=== PATIENT | male | born 1940 | race Caucasian/White ===

== ENCOUNTER → 2018-04-17 | Outpatient (CLI) | payer MEDICARE ==
--- NOTE | 2018-04-17 12:23 | Diagnostic Imaging Report ---
Indication: Right hip pain 2 views of the right hip show no fracture, dislocation or other acute abnormalities. Impression: Negative right hip Dictated by: Dictated on workstation # [id number]
--- NOTE | 2018-04-17 12:24 | Diagnostic Imaging Report ---
Indication: Left hip pain 3 views of left hip show no fracture, dislocation or other acute abnormalities. Joint spaces well maintained. Articular surfaces are smooth. Impression: Negative left hip Dictated by: Dictated on workstation # [id number]
--- NOTE | 2018-04-17 12:25 | Diagnostic Imaging Report ---
Indication: Neck pain Cervical spine AP and lateral views of the cervical spine were obtained. There is disc space during at C4-5. There is very slight spondylolisthesis at C5-6. There are hypertrophic changes of the uncovertebral joints from C2-3 through C5-6. There is no fracture or prevertebral soft tissue swelling. Impression: There are degenerative disc changes of the lower cervical spine and of the uncovertebral joints through the mid cervical spine. There is no acute abnormality seen. Dictated by: Dictated on workstation # [id number]
--- NOTE | 2018-04-17 12:28 | Diagnostic Imaging Report ---
CLINICAL INDICATION: Patient with chronic pain in low back. EXAM: X-ray of the lumbar spine, three views. COMPARISON: None. FINDINGS: There is mild dextroscoliosis of the lumbar spine with apex at the L2 vertebral body level. There is moderately hypertrophic spurs throughout the lumbar spine. There is grade I anterolisthesis of L4 on L5 with no pars defect seen. There is sfsjkvcw-[id number] loss of intervertebral disc height at the L5-S1 level and mild loss at the L3-L4 level. Facet arthropathy is seen. Sacroiliac joint shows no significant abnormality. Phleboliths are seen in the pelvis. 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 2: There is grade I anterolisthesis of L4 on L5. There is no pars defect seen. Dictated by: Dictated on workstation # [id number]
== END ==
LOC: RAD FS 10:50
PROVIDERS: ATTEND Family Medicine
DX: M50.30 Other cervical disc degeneration, unspecified cervical region (principal); M47.816 Spondylosis without myelopathy or radiculopathy, lumbar region; M41.86 Other forms of scoliosis, lumbar region; M43.16 Spondylolisthesis, lumbar region; M25.552 Pain in left hip; M25.551 Pain in right hip
CPT/HCPCS: 72040; 72100; 73502

== ENCOUNTER 2018-10-08 13:06 | Outpatient (CLI) | payer MEDICARE ==
[~2018-10-08] VITALS: Ht 177.8 cm; Wt 86.2 kg
[2018-10-08] MEDS ORDERED: ASPI-808 PO (13:19)
[2018-10-08] MEDS ORDERED: AMLO2.5T4 PO (13:19)
[2018-10-08] MEDS ORDERED: MELA3TAB PO (13:20)
[2018-10-08] MEDS ORDERED: LOVA20TA2 PO (13:20)
[2018-10-08] MEDS ORDERED: IBUP-1780 PO (13:20)
[2018-10-08] MEDS ORDERED: CLOB15CR3 TP (13:20)
[2018-10-08] MEDS ORDERED: ACET-2267 PO (13:20)
[2018-10-08] MEDS ORDERED: ATEN25TA PO (13:20)
[2018-10-08] MEDS ORDERED: HYDR25TA4 PO (13:20)
[2018-10-08] MEDS ORDERED: LISI-552 PO (13:20)
== END 2018-10-08 16:00 | disposition home or self-care (01) ==
LOC: PREOP 13:06
PROVIDERS: ATTEND Orthopaedic Surgery
DX: Z01.818 Encounter for other preprocedural examination (principal)

== ENCOUNTER 2018-10-13 10:15 | Inpatient (IN) | payer MEDICARE ==
[2018-10-13] VITALS (12 sets, daily range): BP systolic 136–196; BP diastolic 66–97
[~2018-10-13] VITALS: Ht 177.8 cm; Wt 83.9 kg
[~2018-10-13 10:15] MED LIST: ACET-2267 PO; AMLO2.5T4 PO; ASPI-808 PO; ATEN25TA PO; CLOB15CR3 TP; HYDR25TA4 PO; IBUP-1780 PO; LISI-552 PO; LOVA20TA2 PO; MELA3TAB PO
[2018-10-13] MEDS ORDERED: SUCCINYLCHOLINE INJ 100 MG/5 ML SYR ONE (10:44)
[2018-10-13] MEDS ORDERED: ROCURONIUM 10 MG/ML 5 ML SYRINGE IV ONE (10:44)
[2018-10-13] MEDS ORDERED: ONDANSETRON 4 MG/2 ML (SDV) Z0FRAN ONE (10:44)
[2018-10-13] MEDS ORDERED: LIDOCAINE PF 2% 5 ML (XYLOCAINE) VIAL ONE (10:44)
[2018-10-13] MEDS ORDERED: DEXAMETHASONE 10 MG/ML (DECADRON) 1 ML VIAL ONE ×2 (10:44→12:52)
[2018-10-13] MEDS ORDERED: proPOfol 200 MG/20 ML (DIPRIVAN) VIAL IV ONE ×2 (10:44→14:19)
[2018-10-13] MEDS ORDERED: GLYCOPYRROLATE 0.2 MG/ML (ROBINUL) 2 ML VIAL ONE (10:44)
[2018-10-13] MEDS ORDERED: SEVOFLURANE (ULTANE) 15 ML INHAL SOLN ONE (10:44)
[2018-10-13] MEDS ORDERED: NEOSTIGMINE 3 MG/3 ML VIAL ONE (10:44)
[2018-10-13] MEDS ORDERED: PROPOFOL INJECTION 50 ML IV ONE (10:44)
[2018-10-13] MEDS: LACTATED RINGERS 1,000 ML IV PRN ×2 (10:45→13:05)
[2018-10-13] MEDS ORDERED: fentaNYL INJECTION 100 MCG/2 ML AMP ONE (10:45)
[2018-10-13 10:57] LABS: BASOPHILS # (AUTO) 0.1 10^3/uL (0.0-0.1); BASOPHILS % (AUTO) 1 % (0-10); EOSINOPHILS # (AUTO) 0.2 10^3/uL (0.0-0.3); EOSINOPHILS % (AUTO) 2 % (0-10); HEMATOCRIT 46 % (40-54); LYMPHOCYTES # (AUTO) 3.1 X 10^3 (1.0-4.0); LYMPHOCYTES % (AUTO) 38 % (12-44); MEAN CORPUSCULAR HEMOGLOBIN 31 PG (25-34); MEAN CORPUSCULAR HGB CONC 33 G/DL (32-36); MEAN CORPUSCULAR VOLUME 95 FL (80-99); MEAN PLATELET VOLUME 10.7 FL (7.4-10.4); MONOCYTES % (AUTO) 12 % (0-12); NEUTROPHILS # (AUTO) 3.9 X 10^3 (1.8-7.8); NEUTROPHILS % (AUTO) 48 % (42-75); PLATELET COUNT 255 10^3/uL (130-400); RED CELL DISTRIBUTION WIDTH 13.5 % (10.0-14.5); WHITE BLOOD COUNT 8.1 10^3/uL (4.3-11.0)
[2018-10-13] MEDS ORDERED: CLINDAMYCIN 600 MG/50 ML IVPB 50 ML IV ONE ×2 (11:00→11:15)
[2018-10-13] MEDS ORDERED: BACITRACIN 100,000 UNIT/NS 1000 ML POUR BOTTLE IR ONE ×2 (11:15)
[2018-10-13] MEDS ORDERED: ONDANSETRON 4 MG/2 ML (SDV) Z0FRAN IV PRN (12:45)
[2018-10-13] MEDS ORDERED: BISACODYL 5 MG (DULCOLAX) TABLET PO PRN (12:45)
[2018-10-13] MEDS ORDERED: BISACODYL 10 MG SUPP (DULCOLAX) PR PRN (12:45)
[2018-10-13] MEDS ORDERED: ONDANSETRON 4 MG (ZOFRAN) ORAL DISSOLVE TAB PO PRN (12:45)
[2018-10-13] MEDS ORDERED: morphine INJ 10 MG/ML 1ML (SYR OR VIAL) IVP PRN (12:45)
[2018-10-13] MEDS ORDERED: FAMOTIDINE 20 MG (PEPCID) TABLET PO SCH (12:45)
[2018-10-13] MEDS ORDERED: oxyCODONE/APAP 5/325MG (PERCOCET 5) TABLET PO PRN (12:45)
[2018-10-13] MEDS ORDERED: THROMBIN 5,000 UNIT (RECOTHROM) VIAL ONE ×2 (12:46→13:43)
[2018-10-13] MEDS ORDERED: CLINDAMYCIN 900 MG/50 ML IVPB 50 ML IV SCH (14:00)
[2018-10-13] MEDS ORDERED: THROMBIN 5,000 UNIT (RECOTHROM) VIAL TOP ONE ×2 (14:15)
[2018-10-13] MEDS ORDERED: morphine INJ 10 MG/ML 1ML (SYR OR VIAL) IVP ONE (15:00)
[2018-10-13] MEDS ORDERED: ONDANSETRON 4 MG/2 ML (SDV) Z0FRAN IVP PRN (15:00)
[2018-10-13] MEDS ORDERED: fentaNYL INJECTION 100 MCG/2 ML AMP IVP ONE (15:00)
--- NOTE | 2018-10-13 16:00 | NUR ---
MADDIE MEDELLIN admitted to room 418-1, admitted from surgery post op cervial fusion, on 10/13/18, accompanied by recovery nurse and daughter already in room waiting on the patient .MADDIE MEDELLIN introduced to surroundings, call light, bed controls, phone, TV, temperature control, lights, meal times, smoking policy, visitor policy, side rail policy, bathrooms and showers. Patient Rights given to patient in the handbook. MADDIE MEDELLIN verbalizes understanding that [facility] is not responsible for the loss or damage to any personal effects or valuables that are kept in the patients posession during their hospitalization. The following Patient Care Plans and discharge were discussed with the patient, daughter present, MADDIE MEDELLIN verbalizes understanding of Interdisciplinary Patient Education.
--- NOTE | 2018-10-13 19:07 | Diagnostic Imaging Report ---
INDICATION: Fluoroscopy for cervical spine surgery. Fluoroscopy was provided in the OR during cervical spine surgery. 9 seconds of fluoroscopy was utilized. Images demonstrate postop changes cervical spine ACDF. IMPRESSION: Fluoroscopy for cervical spine surgery. Dictated by: Dictated on workstation # [id number]
[2018-10-13] MEDS: CLINDAMYCIN 900 MG/50 ML IVPB 50 ML IV SCH (19:59)
[2018-10-13] MEDS: HYDROcodone/APAP 5 MG/325 MG (LORTAB) TAB PO PRN (20:00)
[2018-10-13] MEDS: MELATONIN 3 MG TABLET PO SCH (21:36)
[2018-10-13] MEDS: amLODIPine 2.5MG (NORVASC) TAB PO SCH (21:36)
[2018-10-13] MEDS: lisINopril 20 MG (PRINIVIL) TABLET PO SCH (21:36)
[2018-10-13] MEDS: FAMOTIDINE 20 MG (PEPCID) TABLET PO SCH (21:36)
[2018-10-13] MEDS: SIMvastatin 20 MG (ZOCOR) TAB PO SCH (21:36)
[2018-10-13] MEDS: ATENOLOL 25 MG (TENORMIN) TAB PO SCH (21:36)
[2018-10-14] MEDS: CLINDAMYCIN 900 MG/50 ML IVPB 50 ML IV SCH ×2 (03:09→12:07)
[2018-10-14 03:34] VITALS: BP 157/73
--- NOTE | 2018-10-14 06:30 | Progress Note ---
Subjective Date Seen by a Provider: Oct 14, 2018 Time Seen by a Provider: 06:27 Subjective/Events-last exam POD #1 s/p ACDF with corpectomy C3-6. C/o discomfort with the c-collar and some dysphagia as well. We discussed removing the collar when seated or in bed. He denies SOB, f/c n/v Review of Systems General: No Chills HEENT: No Head Aches Cardiovascular: No: Chest Pain, Palpitations Gastrointestinal: No: Nausea, Vomiting Musculoskeletal: neck pain Neurological: No: Weakness, Numbness, Incoordination Objective Exam Vital Signs Date Time Temp Pulse Resp B/P (MAP) Pulse Ox O2 Delivery O2 Flow Rate FiO2 10/14/18 03:34 97.5 58 18 157/73 (101) 94 Room Air 10/13/18 23:41 97.3 65 18 151/77 (101) 96 Room Air 10/13/18 21:00 Room Air 10/13/18 19:39 97.6 68 18 169/83 (111) 96 Room Air 10/13/18 15:46 97.4 58 20 189/91 (123) 97 Room Air 10/13/18 15:40 Room Air 10/13/18 15:29 12 94 Room Air 10/13/18 15:20 97.0 14 96 Room Air 10/13/18 15:10 14 95 Room Air 10/13/18 15:00 OxyMask 10 10/13/18 15:00 14 96 OxyMask 10 10/13/18 14:50 12 98 OxyMask 10 10/13/18 14:40 12 98 10/13/18 14:31 97.6 12 100 OxyMask 10 10/13/18 14:31 OxyMask 10 10/13/18 11:00 Room Air 10/13/18 11:00 97.9 62 18 196/97 99 10/13/18 10:25 97.9 62 18 196/97 (130) Room Air I & O 10/14/18 07:00 Intake Total 2250 ml Output Total 70 ml Balance 2180 ml Capillary Refill : Less Than 3 Seconds General Appearance: No Apparent Distress Neck: Other (shadows to dressing) Respiratory: No Accessory Muscle Use, No Respiratory Distress, Other (negative for jvd or tracheal deviation) Cardiovascular: No Edema, Normal Peripheral Pulses Extremity: Normal Capillary Refill, Normal Inspection, Non Tender, No Calf Tenderness Neurologic/Psychiatric: Alert, Oriented x3, No Motor/Sensory Deficits Skin: Normal Color, Warm/Dry Results Lab Laboratory Tests 10/13/18 10:45: White Blood Count 8.1, Red Blood Count 4.83, Hemoglobin 15.0, Hematocrit 46, Mean Corpuscular Volume 95, Mean Corpuscular Hemoglobin 31, Mean Corpuscular Hemoglobin Concent 33, Red Cell Distribution Width 13.5, Platelet Count 255, Mean Platelet Volume 10.7H, Neutrophils (%) (Auto) 48, Lymphocytes (%) (Auto) 38, Monocytes (%) (Auto) 12, Eosinophils (%) (Auto) 2, Basophils (%) (Auto) 1, Neutrophils # (Auto) 3.9, Lymphocytes # (Auto) 3.1, Monocytes # (Auto) 1.0, Eosinophils # (Auto) 0.2, Basophils # (Auto) 0.1 Microbiology 10/13/18 Gram Stain, Resulted Pending 10/13/18 Anaerobic Culture, Resulted Pending 10/13/18 Surgical Culture - Preliminary, Resulted Assessment/Plan Assessment/Plan Assess & Plan/Chief Complaint assessment POD #1 s/p acdf plan continue drain c-collar when oob continue current care pain control x-ray today probable d/c tomorrow Clinical Quality Measures DVT/VTE Risk/Contraindication: Risk Factor Score Per Nursin RFS Level Per Nursing on Admit: 3=High ANTOINE ORNELAS Oct 14, 2018 06:30
[2018-10-14] MEDS ORDERED: HYDR-4227 PO (06:31)
--- NOTE | 2018-10-14 06:33 | Discharge Inst-Simple/Standard ---
Discharge Inst-Standard Reconcile Patient Problems Problems Reviewed?: Yes Discharge Medications New, Converted or Re-Newed RX: RX on Chart Patient Instructions/Follow Up Plan of Care/Instructions/FU: follow up in clinic in 2 weeks dont bend lift twist push or pull keep collar on when up, or in vehicle no driving keep incision covered and dry Activity as Tolerated: No Discharge Diet: No Restrictions Return to The Hospital For: chest pain shortness of breath ANTOINE ORNELAS Oct 14, 2018 06:33
--- NOTE | 2018-10-14 07:39 | Anesthesia-General Post-Op ---
General Patient Condition Mental Status/LOC: Same as Preop Cardiovascular: Satisfactory Nausea/Vomiting: Absent Respiratory: Satisfactory Pain: Controlled Complications: Absent Post Op Complications Complications None Follow Up Care/Instructions Patient Instructions None needed. Anesthesia/Patient Condition Patient Condition Patient is doing well, no complaints, stable vital signs, no apparent adverse anesthesia problems. No complications reported per nursing. D/C home per [facility] Criteria: Yes DERREK COSME CRNA Oct 14, 2018 07:39
[2018-10-14 08:00] VITALS: BP 142/69
[2018-10-14] MEDS: lisINopril 20 MG (PRINIVIL) TABLET PO SCH ×2 (09:30→20:32)
[2018-10-14] MEDS: ATENOLOL 25 MG (TENORMIN) TAB PO SCH ×2 (09:30→20:32)
[2018-10-14] MEDS: FAMOTIDINE 20 MG (PEPCID) TABLET PO SCH ×2 (09:30→20:32)
[2018-10-14] MEDS: HYDROCHLOROTHIAZIDE 25 MG (HCTZ) TAB PO SCH (09:30)
[2018-10-14] MEDS: amLODIPine 2.5MG (NORVASC) TAB PO SCH ×2 (09:30→20:32)
--- NOTE | 2018-10-14 10:22 | Physical Therapy Evaluation ---
PT Evaluation-General Medical Diagnosis Admission Date October 13, 2018 Medical Diagnosis: myelopathy Onset Date: Oct 13, 2018 Therapy Diagnosis Therapy Diagnosis: debility Height/Weight Height (Feet): 5 Height (Inches): 10.00 Weight (Pounds): 185 Weight (Ounces): 0.0 Precautions Precautions/Isolations: Fall Prevention, Standard Precautions Weight Bear Status Right Lower Extremity: Right Full Weight Bearing Left Lower Extremity: Left Full Weight Bearing Referral Physician: Sam Reason for Referral: Evaluation/Treatment Medical History Pertinent Medical History: HTN Current History s/p ACDF C3-6 Reviewed History: Yes Social History Home: Single Level Current Living Status: Spouse Entry Into Home: Stairs With Railing PT Steps Into Home: 1 PT Steps Inside Home: 1 Prior/Core FIM Prior Level of Function Therapy Code Descriptions/Definitions Functional [place] Measure: 0=Not Assessed/NA 4=Minimal Assistance 1=Total Assistance 5=Supervision or Setup 2=Maximal Assistance 6=Modified [place] 3=Moderate Assistance 7=Complete [place] Therapy Quality Codes: 6 Independent with activity with or without an assistive device 5 Patient requires set up or clean up by helper. Patient completes activity by themselves 4 Supervision or touching assist (CGA). [place] provide cues , steadying assist 3 The helper provides less than half the effort to complete the activity 2 The helper provides more than half the effort to complete the activity 1 Dependent. The helper does all the effort to complete an activity 7 Patient refused to complete or attempt activity 9 The patient did not perform the activity before the current illness or injury 88 Not attempted due to Medical conditions or safety concerns Functional Abilities and Goals: Independent: Patient completed the activities by him/herself, with or without an assistive device, with no assistance from a helper. Needed Some Help: Patient needed partial assistance from another person to complete activities. Dependent: A helper completed the activities for the patient. Unknown: Not Applicable: Bed Mobility: 6 Transfers (B,C,W/C) (FIM): 6 Gait: 6 Stairs: 2 Indoor Mobility (Ambulation): Independent Stairs: Independent Prior Devices Use: Walker Prior Device Use: 4WW PT Evaluation-Current Subjective Patient agrees to PT. He reports his is in a w/c and his daughter will be at home to assist. Pain Numeric Pain Scale: 5-Moderate Pain Location: Anterior Location Body Site: Neck Pain Description: Acute Objective Patient Orientation: Normal For Age Problem Solving: Fair Attachments: Drains ROM/Strength ROM Lower Extremities bilateral LE WFL Strength Lower Extremities 4/5 grossly bilateral LE Integumentary/Posture Integumentary refer to nursing notes Bowel Incontinence: No Bladder Incontinence: No Posture WFL Neuromuscular (Tone, Coordination, Reflexes) noted diminished coordination due to myelopathy, however, functional with gross motor skills Sensory Vision: Wears Glasses Hearing: Functional Sensation Right Lower Extremit: Impaired Sensation Left Lower Extremity: Impaired Transfers Therapy Code Descriptions/Definitions Functional [place] Measure: 0=Not Assessed/NA 4=Minimal Assistance 1=Total Assistance 5=Supervision or Setup 2=Maximal Assistance 6=Modified [place] 3=Moderate Assistance 7=Complete [place] Transfers (B, C, W/C) (FIM): 5 Scootin Rollin Supine to/from Sit: 5 Sit to/from Stand: 5 Gait Mode of Locomotion: Walk Anticipated Mode of Locomotion: Walk Gait (FIM): 5 Distance (FIM): 3=150 ft Distance: 175' Gait Level of Assist: 5 Gait Assistive Device: Walker 4 Wheeled Comments/Gait Description functional gait sequence/slight left LE lag, however, patient reports this is not a new issue Balance Sitting Static: Normal Sitting Dynamic: Normal Standing Static: Good Standing Dynamic: Good Assessment/Needs 78 y.o. male, will benefit from skilled PT to address functional strength and mobility to improve current LOF. Patient reports he plans to dismiss to home tomorrow with family. Rehab Potential: Fair PT Short Term Goals Short Term Goals Time Frame: Oct 18, 2018 Transfers (B,C,W/C) (FIM): 6 Gait (FIM): 6 Distance (FIM): 3=150 ft Gait Distance Comment: 200' Gait Level of Assist: 6 Gait Assistive Device: Walker 4 Wheeled Stairs (FIM): 2 # of Steps: 2 Stairs Level of Assist: 4 PT Plan Treatment/Plan Treatment Plan: Continue Plan of Care Treatment Plan: Bed Mobility, Education, Functional Activity Pau, Functional Strength, Gait, Safety, Therapeutic Exercise, Transfers Treatment Duration: Oct 18, 2018 Frequency: 11 times per week Estimated Hrs Per Day: .5 hour per day Patient and/or Family Agrees t: Yes Safety Risks/Education Patient Education: Gait Training, Safety Issues Teaching Recipient: Patient Teaching Methods: Demonstration Response to Teaching: Return Demonstration Discharge Recommendations Therapy D/C Recommendations: Home w/ Family Support Time/GCodes Time In: 820 Time Out: 834 Total Billed Treatment Time: 14 Total Billed Treatment 1 visit EVModC 14 min JIMENEZ RAE PT Oct 14, 2018 10:22
--- NOTE | 2018-10-14 10:31 | OPERATIVE REPORT ---
DATE OF SERVICE: 10/13/2018 SURGEON: Kris Vargas DO SENIOR SVP: XOCHILT Ramirez This is a medically necessary procedure, physical therapy assistant instructor is necessary for retraction of vital neurovascular structures. Without an physical therapy assistant instructor, the procedure would not be possible. PREOPERATIVE DIAGNOSES: 1. Cervical spondylolisthesis of C5-C6. 2. Cervical myelopathy. 3. Cervical spinal stenosis (subluxation, connective tissue, bony). POSTOPERATIVE DIAGNOSES: 1. Cervical spondylolisthesis of C5-C6. 2. Cervical myelopathy. 3. Cervical spinal stenosis (subluxation, connective tissue, bony). PROCEDURE PERFORMED: 1. C3-C4, C4-C5, C5-C6 anterior cervical diskectomy and fusion. 2. C4 corpectomy (100%). 3. Application of titanium expandable corpectomy cage, C3-C5. 4. Application of titanium interbody cage C5-C6. 5. Application of anterior instrumentation. 6. Use of human Allograft for spine. COMPLICATIONS: None. SPECIMENS SENT: C4-C5 disk to the lab for aerobic and anaerobic cultures. DRAINS PLACED: Pramod-Bradley. ESTIMATED BLOOD LOSS: Minimal. ANESTHESIA: General endotracheal anesthesia with local anesthetic. HISTORY OF PRESENT ILLNESS: The patient is a very pleasant 78-year-old gentleman who presented to me with classic symptoms of cervical myelopathy. MRI demonstrated critical stenosis at C3-C4 and C4-C5 with severe degenerative disk disease and severe collapse, which was worrisome for diskitis. He had failed all conservative measures and did wish to proceed with surgery for this. I had initially planned to only address C3-C4, C4-C5; however, careful scrutiny of his imaging on the day of surgery indicated a C5-C6 mobile spondylolisthesis, which I did not feel comfortable leaving. DESCRIPTION OF PROCEDURE: The patient was identified by name on wrist band in the preoperative holding area. His operative site was signed, consent was signed. SCDs were placed. Neuro monitoring was hooked up and antibiotics were started. He was taken to the operating room theater and placed under general endotracheal tube anesthesia and then placed on the operating room table in the supine position. He was prepped and draped in the usual sterile fashion. Formal timeout was conducted and then an oblique incision was then made over the left sternocleidomastoid. I proceeded with standard anterior cervical approach to the spine, verified my level at C3-4 and placed a self-retaining retractor followed by Maxwell pins into the C3-C4 level. I placed distraction across the disk space, I performed an annulotomy followed by complete diskectomy. I took down the posterior longitudinal ligament and I performed bilateral foraminotomies. I then turned my attention to C4-C5, which was severely collapsed and removed as much of the disk as I could. Maintaining distraction across the C3-C5 I did perform a complete corpectomy utilizing a high speed bur. I did not save any of this bone due to the risk of diskitis. I did send some of the disks to the lab to ensure that it did not grow anything as the imaging were worrisome for diskitis; however, the tissue did not appear infected or did not resemble that of diskitis. Once the corpectomy was completed the posterior longitudinal ligament was completely excised. I sized and chose the appropriate titanium expandable NuVasive cage. I packed with human allograft and I seated it into the midline position. I then turned my attention at C5-C6 where distraction indicated a mobile level. Therefore, I removed the annulus followed by complete diskectomy. I sized and chose the appropriate titanium interbody cage. I packed with human allograft and seated it in the midline position. I then obtained the appropriate length plate. I placed it into the midline position and I placed screws through that plate into the body of C3, C5 and C6. Final AP and lateral x-ray demonstrated good positioning of all the hardware. Therefore, I placed a drain alongside the plate. I irrigated the wound, maintained hemostasis and I closed the wound utilizing 3-0 Vicryl followed by running 3-0 subcuticular stitch. I applied dressings, took the patient in the supine position to the PACU where he awoke without incident. He tolerated the procedure well. PLAN: At this time is to admit the patient for IV antibiotics, IV pain control and postoperative monitoring. We will have him out of bed on postop day #1. I will discontinue his drain per my protocol and I will follow up on his culture results. Please note the instrumentation utilized was NuVasive. Job ID: [id number] DocumentID: [id number] Dictated Date: 10/14/2018 07:42:06 Bioinformatics Team Member Date: 10/14/2018 10:29:52 Dictated By: KRIS VARGAS DO
--- NOTE | 2018-10-14 10:40 | Occupational Therapy Eval ---
OT Evaluation-General/PLF Medical Diagnosis Admission Date Medical Diagnosis: myelopathy Onset Date: Oct 13, 2018 Therapy Diagnosis Therapy Diagnosis: impaited ADLs and mobility Height/Weight Height (Feet): 5 Height (Inches): 10.00 Weight (Pounds): 185 Weight (Ounces): 0.0 Precautions Precautions/Isolations: Fall Prevention, Standard Precautions Safety Interventions: None Comments c. collar when OOB Weight Bear Status Weight Bearing Restriction: Weight Bearing/Tolerated Referral Physician: Sam Referral Reason: Activity Tolerance, Self Care, Evaluation/Treatment, Strengthening/ROM Medical History Pertinent Medical History: HTN Current History s/p ACDF with corpectomy C3-6. Reviewed History: Yes Social History Home: Single Level Current Living Status: Spouse Entry Into Home: Stairs With Railing Steps Into Home: 1 Steps Inside Home: 1 ADL-Prior Level of Function Therapy Code Descriptions/Definitions Functional [place] Measure: 0=Not Assessed/NA 4=Minimal Assistance 1=Total Assistance 5=Supervision or Setup 2=Maximal Assistance 6=Modified [place] 3=Moderate Assistance 7=Complete [place] Therapy Quality Codes: 6 Independent with activity with or without an assistive device 5 Patient requires set up or clean up by helper. Patient completes activity by themselves 4 Supervision or touching assist (CGA). [place] provide cues , steadying assist 3 The helper provides less than half the effort to complete the activity 2 The helper provides more than half the effort to complete the activity 1 Dependent. The helper does all the effort to complete an activity 7 Patient refused to complete or attempt activity 9 The patient did not perform the activity before the current illness or injury 88 Not attempted due to Medical conditions or safety concerns Functional Abilities and Goals: Independent: Patient completed the activities by him/herself, with or without an assistive device, with no assistance from a helper. Needed Some Help: Patient needed partial assistance from another person to complete activities. Dependent: A helper completed the activities for the patient. Unknown: Not Applicable: ADL PLOF Comments pt reports indep PLOF using rollater Self Care: Independent Functional Cognition: Independent Drive Self: Yes OT Current Status Subjective pt sitting in recliner chair upon OT arrival. pt agreed to OT evaluation session. pr reprts 3/10 neck pain. NSG aware Mental Status/Objective Patient Orientation: Normal For Age Attachments: Other-See Comments (c. collar ) Current Glasses/Contacts: Yes Hearing Aids: No Dentures/Partials: Yes Hand Dominance: Right Upper Extremity ROM WNL Upper Extremity Coordination WNL finger to nose WNL opposition ADL-Treatment Therapy Code Descriptions/Definitions Functional [place] Measure: 0=Not Assessed/NA 4=Minimal Assistance 1=Total Assistance 5=Supervision or Setup 2=Maximal Assistance 6=Modified [place] 3=Moderate Assistance 7=Complete [place] Therapy Quality Codes: 6 Independent with activity with or without an assistive device 5 Patient requires set up or clean up by helper. Patient completes activity by themselves 4 Supervision or touching assist (CGA). [place] provide cues , steadying assist 3 The helper provides less than half the effort to complete the activity 2 The helper provides more than half the effort to complete the activity 1 Dependent. The helper does all the effort to complete an activity 7 Patient refused to complete or attempt activity 9 The patient did not perform the activity before the current illness or injury 88 Not attempted due to Medical conditions or safety concerns Eating (FIM): 6 Grooming (FIM): 5 (standing at sink) Lower Body Dressing (FIM): 4 (CGA ) Toileting (FIM): 5 Transfers (B, C, W/C) (FIM): 5 (ue of RW ) Toilet/Commode Transfer (FIM): 5 Other Treatments pt education on donning/ doffing C-collar. pt REF to wear C-collar while seated in chair. pt education on importance of C-collar. pt verbalized understanding and stated "I'm only going to wear it if i'm walking" NSG is aware. Education OT Patient Education: Correct positioning, Purpose of tx/functional activities, Use of adapted equipment Teaching Recipient: Patient Teaching Methods: Discussion Response to Teaching: Verbalize Understanding OT Short Term Goals Short Term Goals Transfers (B,C,W/C) (FIM): 6 1=Demonstrate adherence to instructed precautions during ADL tasks. 2=Patient will verbalize/demonstrate understanding of assistive devices/modifications for ADL. 3=Patient will improve strength/tolerance for activity to enable patient to perform ADL's. OT Machine Brush Maker Goals Machine Brush Maker Goals Grooming(FIM): 6 Bathing(FIM): 6 Upper Body Dressing(FIM): 6 Lower Body Dressing(FIM): 6 Toileting(FIM): 6 Transfers (B,C,W/C) (FIM): 6 Toilet/Commode Transfer(FIM): 6 1=Demonstrate adherence to instructed precautions during ADL tasks. 2=Patient will verbalize/demonstrate understanding of assistive devices/modifications for ADL. 3=Patient will improve strength/tolerance for activity to enable patient to perform ADL's. OT Education/Plan Problem List/Assessment Assessment: Decreased Activ Tolerance, Impaired Funct Balance, Impaired I ADL's, Impaired Self-Care Skills Discharge Recommendations Plan/Recommendations: Continue POC Therapy D/C Recommendations: Home w/ Family Support Treatment Plan/Plan of Care Treatment,Training & Education: Yes Patient would benefit from OT for education, treatment and training to promote independence in ADL's, mobility, safety and/or upper extremity function for ADL's. Plan of Care: ADL Retraining, Functional Mobility, UE Funct Exercise/Act Treatment Duration: Oct 21, 2018 Frequency: 5 times per week Estimated Hrs Per Day: .25 hour per day Agreement: Yes Rehab Potential: Fair Time/GCodes Start Time: 09:40 Stop Time: 09:55 Billed Treatment Time EVM 15 minutes BE THAKUR OT Oct 14, 2018 10:40
--- NOTE | 2018-10-14 11:26 | Diagnostic Imaging Report ---
Examination: Cervical spine 2 views. History: Cervical spine fusion. Findings: Comparison is 04/17/2018. There's been a cervical spine corpectomy with interbody fusion and anterior instrumented fusion from C3-C6. There is prevertebral soft tissue swelling related to recent surgery. Severe multilevel facet disease is again seen. No acute fracture is noted. Surgical drains are present. Impression: 1. Corpectomy with interbody fusion and anterior instrumented fusion from C3-C6. Dictated by: Dictated on workstation # [id number]
[2018-10-14 12:00] VITALS: BP 163/80
[2018-10-14] MEDS: HYDROcodone/APAP 5 MG/325 MG (LORTAB) TAB PO PRN ×3 (12:15→20:32)
--- NOTE | 2018-10-14 14:05 | Physical Therapy Daily Note ---
PT Daily Note-Current Subjective Patient is up in recliner and agrees to PT. No c/o. Pain Numeric Pain Scale: 0-No Pain Location: No Pain Reported Mental Status Patient Orientation: Normal For Age Transfers Therapy Code Descriptions/Definitions Functional [place] Measure: 0=Not Assessed/NA 4=Minimal Assistance 1=Total Assistance 5=Supervision or Setup 2=Maximal Assistance 6=Modified [place] 3=Moderate Assistance 7=Complete [place] Therapy Quality Codes: 6 Independent with activity with or without an assistive device 5 Patient requires set up or clean up by helper. Patient completes activity by themselves 4 Supervision or touching assist (CGA). [place] provide cues , steadying assist 3 The helper provides less than half the effort to complete the activity 2 The helper provides more than half the effort to complete the activity 1 Dependent. The helper does all the effort to complete an activity 7 Patient refused to complete or attempt activity 9 The patient did not perform the activity before the current illness or injury 88 Not attempted due to Medical conditions or safety concerns Transfers (B, C, W/C) (FIM): 6 Scootin Sit to/from Stand: 6 Weight Bearing Right Lower Extremity: Right Full Weight Bearing Left Lower Extremity: Left Full Weight Bearing Gait Training Gait (FIM): 6 Distance (FIM): 3=150 ft Distance: 275' Gait Level of Assist: 6 Gait Assistive Device: FWW improved gait sequence with 4WW this p.m. Assessment Patient returned to recliner and lunch is delivered. Patient progressing with treatment and he reports he plans to return to home tomorrow. PT Short Term Goals Short Term Goals Time Frame: Oct 18, 2018 Transfers (B,C,W/C) (FIM): 6 Gait (FIM): 6 Distance (FIM): 3=150 ft Gait Distance Comment: 200' Gait Level of Assist: 6 Gait Assistive Device: Walker 4 Wheeled Stairs (FIM): 2 # of Steps: 2 Stairs Level of Assist: 4 PT Plan Treatment/Plan Treatment Plan: Continue Plan of Care Treatment Plan: Bed Mobility, Education, Functional Activity Pau, Functional Strength, Gait, Safety, Therapeutic Exercise, Transfers Treatment Duration: Oct 18, 2018 Frequency: 11 times per week Estimated Hrs Per Day: .5 hour per day Patient and/or Family Agrees t: Yes Time/GCodes Time In: 1325 Time Out: 1334 Total Billed Treatment Time: 9 Total Billed Treatment 1 visit GT 9 min JIMENEZ RAE PT Oct 14, 2018 14:04
[2018-10-14 16:00] VITALS: BP 136/74
--- NOTE | 2018-10-14 16:50 | NUR ---
THIS NURSE SPOKE WITH XOCHILT SOLIMAN VIA PHONE. NOTIFIED OF PT REPORTING TROUBLE SWALLOWING. ORDER RECEIVED TO GIVE DECADRON 4MG IV OR PO. ORDER ALSO RECEIVED TO REMOVE BILL DRAIN AND CHANGE DRESSING TO SITE. PT NOTIFIED OF PLAN OF CARE.
[2018-10-14] MEDS ORDERED: DEXAMETHASONE 4 MG/ML SDV (DECADRON) IV NR (17:15)
[2018-10-14 20:00] VITALS: BP 168/78
[2018-10-14] MEDS: SIMvastatin 20 MG (ZOCOR) TAB PO SCH (20:32)
[2018-10-14] MEDS: MELATONIN 3 MG TABLET PO SCH (20:32)
[2018-10-15] VITALS (10 sets, daily range): BP systolic 145–198; BP diastolic 71–90
[2018-10-15] MEDS: HYDROcodone/APAP 5 MG/325 MG (LORTAB) TAB PO PRN ×4 (01:30→18:07)
--- NOTE | 2018-10-15 06:28 | Progress Note ---
Subjective Date Seen by a Provider: Oct 15, 2018 Time Seen by a Provider: 06:26 Subjective/Events-last exam POD #2 s/p acdf. c/o worsening dysphagia. has bue pain as well. Review of Systems General: No Chills, No Night Sweats HEENT: No Head Aches; Dysphasia Gastrointestinal: No: Nausea, Abdominal Pain Musculoskeletal: neck pain, shoulder pain, arm pain Neurological: No: Weakness, Numbness, Change in speech, Confusion Objective Exam Vital Signs Date Time Temp Pulse Resp B/P (MAP) Pulse Ox O2 Delivery O2 Flow Rate FiO2 10/15/18 04:00 98.0 74 20 169/78 (108) 95 Room Air 10/15/18 00:00 99.3 73 18 145/71 (95) 94 Room Air 10/14/18 21:00 Room Air 10/14/18 20:00 98.8 65 18 168/78 (108) 95 Room Air 10/14/18 16:00 99.0 61 18 136/74 (94) 95 Room Air 10/14/18 12:00 98.4 63 20 163/80 (107) 95 Room Air 10/14/18 09:00 95 Room Air 10/14/18 08:00 97.4 65 20 142/69 (93) 96 Room Air I & O 10/15/18 07:00 Intake Total 1100 ml Balance 1100 ml Capillary Refill : Less Than 3 Seconds General Appearance: No Apparent Distress, WD/WN Neck: Non Tender, Supple, Other (bandage has been removed, steri strips in place, no jvd or tracheal deviation) Extremity: Normal Range of Motion, Non Tender Neurologic/Psychiatric: Alert, Oriented x3 Skin: Normal Color, Warm/Dry Results Lab Microbiology 10/13/18 MRSA Screen - Final, Complete MRSA not isolated 10/13/18 Gram Stain - Final, Resulted 10/13/18 Anaerobic Culture, Resulted Pending 10/13/18 Surgical Culture - Preliminary, Resulted No growth Assessment/Plan Assessment/Plan Assess & Plan/Chief Complaint assessment POD #2 s/p acdf plan drain has been d/c due to low output keep incision covered c-collar when oob continue current care pain control decadron x 4 additional doses for dysphagia probable d/c tomorrow Clinical Quality Measures DVT/VTE Risk/Contraindication: Risk Factor Score Per Nursin RFS Level Per Nursing on Admit: 3=High ANTOINE ORNELAS Oct 15, 2018 06:28
[2018-10-15] MEDS: FAMOTIDINE 20 MG (PEPCID) TABLET PO SCH ×2 (08:39→20:13)
[2018-10-15] MEDS: amLODIPine 2.5MG (NORVASC) TAB PO SCH ×2 (08:39→20:13)
[2018-10-15] MEDS: ATENOLOL 25 MG (TENORMIN) TAB PO SCH ×2 (08:39→20:13)
[2018-10-15] MEDS: lisINopril 20 MG (PRINIVIL) TABLET PO SCH ×2 (08:39→20:13)
[2018-10-15] MEDS: HYDROCHLOROTHIAZIDE 25 MG (HCTZ) TAB PO SCH (08:54)
--- NOTE | 2018-10-15 09:14 | Physical Therapy Daily Note ---
PT Daily Note-Current Subjective Patient in recliner pre tx, agrees to PT, has 3/10 pain in neck. Patient does not seem to be compliant with his cervical collar, he takes it off often even after education. Appearance Patient in recliner post tx with nurse call, phone, tray, all needs met. Mental Status Patient Orientation: Person, Place, Situation Transfers Therapy Code Descriptions/Definitions Functional [place] Measure: 0=Not Assessed/NA 4=Minimal Assistance 1=Total Assistance 5=Supervision or Setup 2=Maximal Assistance 6=Modified [place] 3=Moderate Assistance 7=Complete [place] Therapy Quality Codes: 6 Independent with activity with or without an assistive device 5 Patient requires set up or clean up by helper. Patient completes activity by themselves 4 Supervision or touching assist (CGA). [place] provide cues , steadying assist 3 The helper provides less than half the effort to complete the activity 2 The helper provides more than half the effort to complete the activity 1 Dependent. The helper does all the effort to complete an activity 7 Patient refused to complete or attempt activity 9 The patient did not perform the activity before the current illness or injury 88 Not attempted due to Medical conditions or safety concerns Transfers (B, C, W/C) (FIM): 6 Sit to/from Stand: 6 Bed to/from Chair: 6 Weight Bearing Right Lower Extremity: Right Full Weight Bearing Left Lower Extremity: Left Full Weight Bearing Gait Training Gait (FIM): 5 Distance: 300' Gait Level of Assist: 5 Gait Persons Needed: 1 Gait Assistive Device: Walker 4 Wheeled has unsteady moments, shaky, but no LOB, more unsteady when turning Exercises Seated Therapy Exercises: Ankle pumps, Long arc quads, Hip flexion Seated Reps: 15 Treatments transfers, ambulation, LE exercise Assessment Current Status: Fair Progress still SBA with ambulation PT Short Term Goals Short Term Goals Time Frame: Oct 18, 2018 Transfers (B,C,W/C) (FIM): 6 Gait (FIM): 6 Distance (FIM): 3=150 ft Gait Distance Comment: 200' Gait Level of Assist: 6 Gait Assistive Device: Walker 4 Wheeled Stairs (FIM): 2 # of Steps: 2 Stairs Level of Assist: 4 PT Plan Problem List Problem List: Activity Tolerance, Functional Strength, Safety, Balance, Gait, Transfer, Bed Mobility, ROM Treatment/Plan Treatment Plan: Continue Plan of Care Treatment Plan: Bed Mobility, Education, Functional Activity Pau, Functional Strength, Gait, Safety, Therapeutic Exercise, Transfers Treatment Duration: Oct 18, 2018 Frequency: 11 times per week Estimated Hrs Per Day: .5 hour per day Patient and/or Family Agrees t: Yes Safety Risks/Education Patient Education: Gait Training, Transfer Techniques, Correct Positioning, Safety Issues Teaching Recipient: Patient Teaching Methods: Demonstration, Discussion Response to Teaching: Reinforcement Needed Time/GCodes Time In: 0853 Time Out: 0906 Total Billed Treatment Time: 13 Total Billed Treatment 1 visit GT 13' KEYON YOUNG PT Oct 15, 2018 09:14
--- NOTE | 2018-10-15 10:57 | Occupational Ther Daily Note ---
OT Current Status-Daily Note Subjective pt sitting in recliner chair without c-collar on upon OT arrival. pt agreed to OT TX session. pt reports no pain. Mental Status/Objective Patient Orientation: Normal For Age Therapy Code Descriptions/Definitions Functional [place] Measure: 0=Not Assessed/NA 4=Minimal Assistance 1=Total Assistance 5=Supervision or Setup 2=Maximal Assistance 6=Modified [place] 3=Moderate Assistance 7=Complete [place] Attachments: Other-See Comments (c- collar) Other Treatment pt education on importance of wearing C-collar secondary to orders on wearing it when OOB. pt agreed to dominick C-collar. pt dominick C-collar indep. pt refused to complete ADLS this date but agreed to have session with focus on increasing UE strength for daily activities. pt perform UB ex 15X2 shoulder all planes to 90 degrees, 15X2 elbow all planes against gravity. post session pt sitting in recliner chair, all needs met. Education OT Patient Education: Exercise program, Progress toward Goal/Update tx plan, Purpose of tx/functional activities Teaching Recipient: Patient Teaching Methods: Demonstration, Discussion Response to Teaching: Verbalize Understanding, Return Demonstration OT Short Term Goals Short Term Goals Transfers (B,C,W/C) (FIM): 6 1=Demonstrate adherence to instructed precautions during ADL tasks. 2=Patient will verbalize/demonstrate understanding of assistive devices/modifications for ADL. 3=Patient will improve strength/tolerance for activity to enable patient to perform ADL's. OT Senior Living Goals Senior Living Goals Grooming(FIM): 6 Bathing(FIM): 6 Upper Body Dressing(FIM): 6 Lower Body Dressing(FIM): 6 Toileting(FIM): 6 Transfers (B,C,W/C) (FIM): 6 Toilet/Commode Transfer(FIM): 6 1=Demonstrate adherence to instructed precautions during ADL tasks. 2=Patient will verbalize/demonstrate understanding of assistive devices/modifications for ADL. 3=Patient will improve strength/tolerance for activity to enable patient to perform ADL's. OT Education/Plan Problem List/Assessment Assessment: Decreased Activ Tolerance Discharge Recommendations Plan/Recommendations: Continue POC Therapy D/C Recommendations: Home w/ Family Support Treatment Plan/Plan of Care Treatment,Training & Education: Yes Patient would benefit from OT for education, treatment and training to promote independence in ADL's, mobility, safety and/or upper extremity function for ADL's. Plan of Care: ADL Retraining, Functional Mobility, UE Funct Exercise/Act Treatment Duration: Oct 21, 2018 Frequency: 5 times per week Estimated Hrs Per Day: .25 hour per day Agreement: Yes Rehab Potential: Fair Time/GCodes Start Time: 10:10 Stop Time: 10:22 Billed Treatment Time EX 12 minutes, 1 unit BE THAKUR OT Oct 15, 2018 10:57
[2018-10-15] MEDS: DEXAMETHASONE 4 MG/ML SDV (DECADRON) IV SCH ×3 (12:49→23:34)
--- NOTE | 2018-10-15 15:16 | Physical Therapy Progress Note ---
Therapy Progress Note Patient in recliner, seems to be in distress. He says he is extremely tired but he cannot go to sleep and needs something to "knock him out" so he can sleep. He refuses to participate in therapy at this time. Nurse notified of patient's need and she is already aware of it. Patient also is pulling on his cervical collar and adjusting it so it is very loose, patient is educated on how it should be fitted and why it is used. Patient ignores education and continues to do what he was doing. KEYON YOUNG PT Oct 15, 2018 15:16
[2018-10-15] MEDS ORDERED: traZODone 50 MG (DESYREL) TAB PO NR (17:30)
--- NOTE | 2018-10-15 19:48 | NUR ---
PATIENT REQUESTED A SLEEP AID FROM DAY SHIFT RN. RN OBTAINED ORDER FOR TRAZODONE. PATIENT IS REFUSING MEDICATION, STATING THAT HE HAS CHANGED HIS MIND HE IS NOW "UNABLE TO BREATHE BECAUSE MY NOSE IS GETTING STUFFY". PATIENT O2 SATS ARE 97% ON ROOM AIR AND DOES NOT APPEAR TO BE HAVING DIFFICULTY BREATHING. WILL MONITOR.
[2018-10-15] MEDS: MELATONIN 3 MG TABLET PO SCH (20:13)
[2018-10-15] MEDS: SIMvastatin 20 MG (ZOCOR) TAB PO SCH (20:13)
[2018-10-15] MEDS: FLUTICASONE NASAL SPRAY (FLONASE) 16 GM BTL NS SCH (20:14)
[2018-10-16] MEDS: HYDROcodone/APAP 5 MG/325 MG (LORTAB) TAB PO PRN (03:47)
[2018-10-16 04:08] VITALS: BP 145/70
[2018-10-16] MEDS: DEXAMETHASONE 4 MG/ML SDV (DECADRON) IV SCH ×2 (05:17→12:25)
[2018-10-16 08:00] VITALS: BP 134/64
[2018-10-16] MEDS: ATENOLOL 25 MG (TENORMIN) TAB PO SCH (08:22)
[2018-10-16] MEDS: HYDROCHLOROTHIAZIDE 25 MG (HCTZ) TAB PO SCH (08:23)
[2018-10-16] MEDS: FLUTICASONE NASAL SPRAY (FLONASE) 16 GM BTL NS SCH (08:23)
[2018-10-16] MEDS: FAMOTIDINE 20 MG (PEPCID) TABLET PO SCH (08:23)
[2018-10-16] MEDS: amLODIPine 2.5MG (NORVASC) TAB PO SCH (08:23)
[2018-10-16] MEDS: lisINopril 20 MG (PRINIVIL) TABLET PO SCH (08:23)
--- NOTE | 2018-10-16 10:07 | Physical Therapy Progress Note ---
Therapy Progress Note Patient is up independently in room and hallway with 4WW without deviation/difficulty. PT to dismiss patient from services at this time. RN and SW notified. Patient desires to return to home on this date. SW notified. JIMENEZ RAE PT Oct 16, 2018 10:07
--- NOTE | 2018-10-16 10:23 | NUR ---
Initial visit: The pt said he is eager to be discharged and return to his , who is wheelchair bound. Their daughter is staying at their home to care for her while the pt is in the hospital. 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 The pt is a retired with [employer], and describes strong and meaningful relationships within his family and broader community. No spiritual affiliation at this time. Offered active listening and engaged in rapport building.
[2018-10-16 12:00] VITALS: BP 136/67
--- NOTE | 2018-10-16 12:45 | Occupational Ther Daily Note ---
OT Current Status-Daily Note Subjective Pt alert, sitting in recliner. Pt stated that he is ready to go home that his is in a w/c and he needs to be home with her. Pt did not have neck collar on and when asked about it he said he only wears it when he walks around. Mental Status/Objective Patient Orientation: Person, Place, Time, Situation Therapy Code Descriptions/Definitions Functional [place] Measure: 0=Not Assessed/NA 4=Minimal Assistance 1=Total Assistance 5=Supervision or Setup 2=Maximal Assistance 6=Modified [place] 3=Moderate Assistance 7=Complete [place] Attachments: IV ADL-Treatment Pt is up ad igor in room with personal walker. Pt states that he is completing his bathing, dressing and grooming by himself. Pt demonstrated ability to don/doff socks by self. Pt completed UE exercises against gravity to increase strength and activity tolerance for daily functional tasks. After therapy, pt sitting in recliner with call light/phone. All needs met in room. OT Short Term Goals Short Term Goals Transfers (B,C,W/C) (FIM): 6 1=Demonstrate adherence to instructed precautions during ADL tasks. 2=Patient will verbalize/demonstrate understanding of assistive devices/modifications for ADL. 3=Patient will improve strength/tolerance for activity to enable patient to perform ADL's. OT Assembly Machine Tool Setter Goals Assembly Machine Tool Setter Goals Grooming(FIM): 6 Bathing(FIM): 6 Upper Body Dressing(FIM): 6 Lower Body Dressing(FIM): 6 Toileting(FIM): 6 Transfers (B,C,W/C) (FIM): 6 Toilet/Commode Transfer(FIM): 6 1=Demonstrate adherence to instructed precautions during ADL tasks. 2=Patient will verbalize/demonstrate understanding of assistive devices/modifications for ADL. 3=Patient will improve strength/tolerance for activity to enable patient to perform ADL's. OT Education/Plan Discharge Recommendations Plan/Recommendations: Continue POC Treatment Plan/Plan of Care Patient would benefit from OT for education, treatment and training to promote independence in ADL's, mobility, safety and/or upper extremity function for ADL's. Plan of Care: ADL Retraining, Functional Mobility, UE Funct Exercise/Act Treatment Duration: Oct 21, 2018 Frequency: 5 times per week Estimated Hrs Per Day: .25 hour per day Agreement: Yes Rehab Potential: Fair Time/GCodes Start Time: 11:00 Stop Time: 11:10 Total Time Billed (hr/min): 10 Billed Treatment Time 1 visit-FA 1 (10 min) [place] Oct 16, 2018 12:45
--- NOTE | 2018-10-16 12:52 | NUR ---
THIS RN PHONED XOCHILT SOLIMAN TO SEE WHEN COMING TO SEE PATIENT. HE STATED FERNANDEZ IS TO COME. THIS RN INFORMED PATIENT DOING MUCH BETTER AND REQUESTING TO GO HOME. PEDRO INFORMED WOULD CONTINUE WITH DISCHARGE AND GO AHEAD AND DISCHARGE PATIENT AND THAT HE WOULD LET DR. FERNANDEZ KNOW PATIENT IS DISCHARGING
--- NOTE | 2018-10-16 13:09 | Discharge Summary ---
Diagnosis/Chief Complaint Date of Admission Date of Discharge 10/16/2018 Admission Diagnosis Admission Diagnosis cervical stenosis with myelopathy Discharge Diagnosis same Reason Hospital Visit C3-6 acdf with c4 corpectomy Discharge Summary Hospital Course Was the Problem List Reviewed?: Yes Hospital Course Mr Wylie was admitted for acdf for cervical stenosis with meylopathy. He tolerated the procedure well without complication. Post operatively he was monitored and experienced some neck and ue pain as well as dysphagia. THis improved, he progressed with PT, his vs remained stable and he was dismissed home on POD #3 Procedures None. Discharge Physical Examination Allergies: Coded Allergies: Penicillins (Verified Allergy, Severe, BREATHING DIFFICULTY, 10/08/18) Vitals & I&Os Vital Signs Date Time Temp Pulse Resp B/P (MAP) Pulse Ox O2 Delivery O2 Flow Rate FiO2 10/16/18 09:00 Room Air 10/16/18 08:00 97.4 66 20 134/64 (87) 95 10/13/18 15:00 10 General Appearance: Alert Respiratory: Normal Air Movement Neuro: Normal Gait, Normal Speech Psych/Mental Status: Mental Status NL Discussion & Recommendations c-collar when up spine precautions follow up in clinic in 2 weeks may resume aspirin on 10/18/2018 Discharge Home Medications Reviewed and agree with Discharge Medication list on patient's Discharge Instruction sheet Instructions to Patient/Family Please see electronic discharge instructions given to patient. Clinical Quality Measures DVT/VTE Risk/Contraindication: Risk Factor Score Per Nursin RFS Level Per Nursing on Admit: 3=High ANTOINE ORNELAS Oct 16, 2018 13:09
== END 2018-10-16 14:40 | disposition home or self-care (01) | DRG 473 ==
LOC: SDC 10:15 → 4TH 10:15 → EDSTATUS 12:00 → SDC 15:37 → 4TH 15:37 → SDC 10-16 14:40
PROVIDERS: ADMIT Orthopaedic Surgery; ATTEND Orthopaedic Surgery
PROC: 0RT30ZZ Resection of Cervical Vertebral Disc, Open Approach (ICD-10-PCS; 2018-10-13)
PROC: 0RB10ZZ Excision of Cervical Vertebral Joint, Open Approach (ICD-10-PCS; 2018-10-13)
PROC: 0RG20A0 Fusion of 2 or more Cervical Vertebral Joints with Interbody Fusion Device, Anterior Approach, Anterior Column, Open Approach (ICD-10-PCS; principal; 2018-10-13 13:05)
DX: M50.01 Cervical disc disorder with myelopathy, high cervical region (principal); M43.12 Spondylolisthesis, cervical region; M48.02 Spinal stenosis, cervical region; R13.10 Dysphagia, unspecified; G62.9 Polyneuropathy, unspecified; I10 Essential (primary) hypertension; E78.5 Hyperlipidemia, unspecified; F17.220 Nicotine dependence, chewing tobacco, uncomplicated; Z95.5 Presence of coronary angioplasty implant and graft; Z79.82 Long term (current) use of aspirin
CPT/HCPCS: 36415; 72040; 85025; 86850; 86900; 86901; 87070; 87075; 87081; 87205; 94664

== ENCOUNTER 2018-11-01 21:33 | Emergency (ER) | payer MEDICARE ==
[~2018-11-01] VITALS: Ht 177.8 cm; Wt 86.2 kg
[~2018-11-01 21:33] MED LIST changes: +HYDR-4227 PO
--- NOTE | 2018-11-01 21:46 | ED Cardiac General ---
History of Present Illness General Chief Complaint: Cardiac/General Problems Stated Complaint: ELEV BP Source: patient Exam Limitations: no limitations History of Present Illness Date Seen by Provider: Nov 01, 2018 Time Seen by Provider: 21:44 Initial Comments 78-year-old male presents because he wasn't feeling good, he reports because it wasn't feeling good he checked his blood pressure and it was elevated. Patient reports just generalized malaise but no shortness of breath, headache, chest pain or other systemic complaints. Patient reports he takes quite a few blood pressure medications. He denies missing any of his medications. He denies any other systemic complaints at this time. Patient reports that he took his home evening medications for his blood pressure just prior to coming to the ER. Patient clarified that he just restarted his amlodipine tonight. Patient had been on 2.5 mg twice a day up until about a week ago. Patient took his first redosed with 2.5 mg tonight. Allergies and Home Medications Allergies Coded Allergies: Penicillins (Verified Allergy, Severe, BREATHING DIFFICULTY, 10/08/18) Home Medications Amlodipine Besylate 2.5 Mg Tablet, 2.5 MG PO BID, (Reported) Atenolol 25 Mg Tablet, 25 MG PO BID, (Reported) Clobetasol Propionate/Emoll 15 Gm Cream..g., 15 GM TP PRN, (Reported) Hydrochlorothiazide 25 Mg Tablet, 25 MG PO DAILY, (Reported) Hydrocodone/Acetaminophen 1 Each Tablet, 1 TAB PO Q4H Prescribed by: ANTOINE ORNELAS on 10/14/18 0631 Lisinopril 20 Mg Tablet, 20 MG PO BID, (Reported) Lovastatin 20 Mg Tablet, 40 MG PO HS, (Reported) Melatonin 3 Mg Tablet, 3 MG PO HS, (Reported) Patient Home Medication List Home Medication List Reviewed: Yes Review of Systems Review of Systems Constitutional: No chills, No dizziness, No fever; malaise; No weakness EENTM: No Symptoms Reported; No Blurred Vision, No Double Vision Respiratory: Denies Cough; Shortness of Air Cardiovascular: Denies Chest Pain; Irregular Heart Rate; Denies Lightheadedness Musculoskeletal: no symptoms reported Skin: no symptoms reported Psychiatric/Neurological: No Symptoms Reported Past Evyofcy-Mjnnbi-Tfarip Hx Past Med/Social Hx: Reviewed Nursing Past Med/Soc Hx Patient Social History Recent Foreign Travel: No Contact w/Someone Who Travel: No Recent Hopitalizations: No Immunizations Up To Date Date of Pneumonia Vaccine: Dec 03, 2016 Seasonal Allergies Seasonal Allergies: No Past Medical History Surgeries: Yes (CARDIAC STENT, HEEL SPURS) Respiratory: No Cardiac: Yes (STENT) Neurological: No Genitourinary: No Gastrointestinal: No Musculoskeletal: Yes Amputee, Chronic Back Pain Endocrine: No HEENT: Yes (GLASSES, DENTURES) Loss of Vision: Denies Hearing Impairment: Denies Cancer: No Psychosocial: No Integumentary: Yes Psoriasis Blood Disorders: No Adverse Reaction/Blood Tranf: No (N/A) Physical Exam Vital Signs Vital Signs - First Documented 11/01/18 21:51 Temp 98.5 Pulse 68 Resp 15 B/P (MAP) 205/95 (131) Pulse Ox 97 O2 Delivery Room Air Capillary Refill : Height, Weight, BMI Height: 5'10.00" Weight: 185lbs. 0.0oz. [id number]; 26.5 BMI Method: General Appearance: No Apparent Distress, WD/WN HEENT: PERRL/EOMI, TMs Normal Neck: Normal Inspection, Non Tender Respiratory: Chest Non Tender, Lungs Clear, Normal Breath Sounds Cardiovascular: Regular Rate, Rhythm, No Edema Neurologic/Psychiatric: Alert, Oriented x3, No Motor/Sensory Deficits, lab nurse II- XII Norm as Tested Skin: Normal Color, Warm/Dry Progress/Results/Core Measures Results/Orders Lab Results Laboratory Tests Test 11/01/18 21:45 11/01/18 22:30 Range/Units White Blood Count 9.8 4.3-11.0 10^3/uL Red Blood Count 4.55 4.35-5.85 10^6/uL Hemoglobin 14.4 13.3-17.7 G/DL Hematocrit 43 40-54 % Mean Corpuscular Volume 95 80-99 FL Mean Corpuscular Hemoglobin 32 25-34 PG Mean Corpuscular Hemoglobin Concent 33 32-36 G/DL Red Cell Distribution Width 12.9 10.0-14.5 % Platelet Count 258 130-400 10^3/uL Mean Platelet Volume 10.1 7.4-10.4 FL Neutrophils (%) (Auto) 67 42-75 % Lymphocytes (%) (Auto) 25 12-44 % Monocytes (%) (Auto) 7 0-12 % Eosinophils (%) (Auto) 1 0-10 % Basophils (%) (Auto) 0 0-10 % Neutrophils # (Auto) 6.6 1.8-7.8 X 10^3 Lymphocytes # (Auto) 2.4 1.0-4.0 X 10^3 Monocytes # (Auto) 0.7 0.0-1.0 X 10^3 Eosinophils # (Auto) 0.1 0.0-0.3 10^3/uL Basophils # (Auto) 0.0 0.0-0.1 10^3/uL Sodium Level 132 L 135-145 MMOL/L Potassium Level 4.7 3.6-5.0 MMOL/L Chloride Level 95 L 98-107 MMOL/L Carbon Dioxide Level 21 21-32 MMOL/L Anion Gap 16 H 5-14 MMOL/L Blood Urea Nitrogen 27 H 7-18 MG/DL Creatinine 1.10 0.60-1.30 MG/DL Estimat Glomerular Filtration Rate > 60 BUN/Creatinine Ratio 25 Glucose Level 135 H 70-105 MG/DL Calcium Level 10.2 H 8.5-10.1 MG/DL Corrected Calcium 10.4 H 8.5-10.1 MG/DL Magnesium Level 1.7 1.6-2.4 MG/DL Total Bilirubin 0.3 0.1-1.0 MG/DL Aspartate Amino Transf (AST/SGOT) 17 5-34 U/L Alanine Aminotransferase (ALT/SGPT) 12 0-55 U/L Alkaline Phosphatase 143 H 40-136 U/L Pro-B-Type Natriuretic Peptide 710.7 H <75.0 PG/ML Total Protein 7.3 6.4-8.2 GM/DL Albumin 3.8 3.2-4.5 GM/DL Urine Color YELLOW Urine Clarity CLEAR Urine pH 6.0 5-9 Urine Specific [place] >=1.030 1.016-1.022 Urine Protein 2+ H NEGATIVE Urine Glucose (UA) NEGATIVE NEGATIVE Urine Ketones NEGATIVE NEGATIVE Urine Nitrite NEGATIVE NEGATIVE Urine Bilirubin NEGATIVE NEGATIVE Urine Urobilinogen 0.2 NORMAL MG/DL Urine Leukocyte Esterase NEGATIVE NEGATIVE Urine RBC (Auto) 2+ H NEGATIVE Urine RBC 0-2 /HPF Urine WBC NONE /HPF Urine Squamous Epithelial Cells NONE /HPF Urine Crystals NONE /LPF Urine Bacteria NEGATIVE /HPF Urine Casts NONE /LPF Urine Mucus NEGATIVE /LPF Urine Culture Indicated NO My Orders Orders - JIMI TORREZ DO Ekg Tracing (11/01/18 21:41) Cbc With Automated Diff (11/01/18 21:41) Comprehensive Metabolic Panel (11/01/18 21:41) Magnesium (11/01/18 21:41) Ua Culture If Indicated (11/01/18 21:41) Probnp Fs (11/01/18 21:41) Vital Signs/I&O 11/01/18 21:51 Temp 98.5 Pulse 68 Resp 15 B/P (MAP) 205/95 (131) Pulse Ox 97 O2 Delivery Room Air Progress Progress Note : Time: 23:04 Progress Note Discussed with patient the need to continue the restart of his amlodipine since that is the medication that I would've started. Patient will need a few days for it to have an effect. At this time there are no acute findings the patient remained asymptomatic. There is no need for further inpatient treatment or further evaluation. I did discuss with him some proteinuria which is why he needs to take amlodipine. Recommend he follows with her primary care school coordinator in the next 3-4 days for recheck of symptoms. He should return to the ER if he develops any symptoms suggestive chest pain, shortness of breath or any other concerns. Initial ECG Impression Date: Nov 01, 2018 Initial ECG Impression Time: 21:49 Initial ECG Rate: 59 Initial ECG Rhythm: S.Vj Initial ECG Intervals: Normal Initial ECG Impression: Nonspecific Changes Initial ECG Comparisson: No Previous ECG Available Departure Impression Primary Impression: Hypertension, uncontrolled Disposition: 01 HOME, SELF-CARE Condition: Stable Departure-Patient Inst. Referrals: KRISTA MULLEN MD (PCP/Family) Primary Care Physician Patient Instructions: High Blood Pressure in Adults Add. Discharge Instructions: Continue all your medications as prescribed. Continue taking her amlodipine 2.5 mg twice a day. Follow-up with her primary care and school coordinator next week. Return to the ER as needed All discharge instructions reviewed with patient and/or family. Voiced understanding. JIMI TORREZ DO Nov 01, 2018 21:46
[2018-11-01 21:56] LABS: HEMATOCRIT 43 % (40-54); HEMOGLOBIN 14.4 G/DL (13.3-17.7); LYMPHOCYTES % (AUTO) 25 % (12-44); MEAN CORPUSCULAR HEMOGLOBIN 32 PG (25-34); MEAN CORPUSCULAR HGB CONC 33 G/DL (32-36); MEAN CORPUSCULAR VOLUME 95 FL (80-99); MEAN PLATELET VOLUME 10.1 FL (7.4-10.4); MONOCYTES % (AUTO) 7 % (0-12); NEUTROPHILS % (AUTO) 67 % (42-75); PLATELET COUNT 258 10^3/uL (130-400); RED CELL DISTRIBUTION WIDTH 12.9 % (10.0-14.5); WHITE BLOOD COUNT 9.8 10^3/uL (4.3-11.0)
[2018-11-01 21:57] LABS: BASOPHILS % (AUTO) 0 % (0-10); EOSINOPHILS # (AUTO) 0.1 10^3/uL (0.0-0.3); EOSINOPHILS % (AUTO) 1 % (0-10); LYMPHOCYTES # (AUTO) 2.4 X 10^3 (1.0-4.0); MONOCYTES # (AUTO) 0.7 X 10^3 (0.0-1.0); NEUTROPHILS # (AUTO) 6.6 X 10^3 (1.8-7.8)
[2018-11-01 22:26] LABS: BILIRUBIN,TOTAL 0.3 MG/DL (0.1-1.0); BUN/CREATININE RATIO 25; CALCIUM 10.2 MG/DL (8.5-10.1); CARBON DIOXIDE 21 MMOL/L (21-32); CHLORIDE 95 MMOL/L (98-107); GFR ESTIMATED > 60; GLUCOSE 135 MG/DL (70-105); MAGNESIUM 1.7 MG/DL (1.6-2.4); POTASSIUM 4.7 MMOL/L (3.6-5.0); SODIUM 132 MMOL/L (135-145)
[2018-11-01 22:27] LABS: ALANINE AMINOTRANSFERASE 12 U/L (0-55); ALBUMIN 3.8 GM/DL (3.2-4.5); ALKALINE PHOSPHATASE 143 U/L (40-136); TOTAL PROTEIN 7.3 GM/DL (6.4-8.2)
[2018-11-01 22:38] LABS: BILIRUBIN,URINE NEGATIVE (NEGATIVE); CLARITY,URINE CLEAR; COLOR,URINE YELLOW; GLUCOSE, URINE (UA) NEGATIVE (NEGATIVE); KETONES,URINE NEGATIVE (NEGATIVE); LEUKOCYTE ESTERASE ,URINE NEGATIVE (NEGATIVE); NITRITE,URINE NEGATIVE (NEGATIVE); PROTEIN,URINE 2+ (NEGATIVE); UROBILINOGEN,URINE 0.2 MG/DL (NORMAL)
[2018-11-01 22:44] LABS: BACTERIA,URINE NEGATIVE /HPF; RBC,URINE 0-2 /HPF
[2018-11-01] MEDS ORDERED: HYDROCHLOROTHIAZIDE 12.5 MG (HCTZ) CAP PO ONE (23:00)
[2018-11-01 23:09] VITALS: BP 193/83
== END 2018-11-01 23:08 | disposition home or self-care (01) ==
LOC: EDUNIT# 21:33 → ER FS 21:35
DX: I10 Essential (primary) hypertension (principal); Z88.0 Allergy status to penicillin; Z95.5 Presence of coronary angioplasty implant and graft
CPT/HCPCS: 36415; 80053; 81000; 83735; 83880; 85025; 93005

== ENCOUNTER → 2019-09-10 | Outpatient (CLI) | payer MEDICARE ==
[~2019-09-10] MED LIST changes: -MELA3TAB PO; +MELA3TAB39 PO
--- NOTE | 2019-09-10 19:34 | Diagnostic Imaging Report ---
PROCEDURE: MRI lumbar spine. TECHNIQUE: Multiplanar, multisequence MRI of the lumbar spine was performed without contrast. DATE: September 10, 2019. COMPARISON: Lumbar spine radiographs April 17, 2018. INDICATION: 79-year-old male, low back pain. FINDINGS: The alignment of the lumbar spine is grossly unremarkable. There is no evidence of a diffuse marrow infiltrating or replacing process. There is no focal concerning bone lesion. There is no compression deformity or other fracture. There is no visualized pars interarticularis defect. The visualized cord and conus medullaris is unremarkable and terminates at the L1-L2 level. There is mild to moderate disc height loss at L4-L5. There is severe disc height loss at L5-S1. There are very mild disc degenerative changes of the lower thoracic spine. There is a T2 hyperintense probable exophytic left renal lesion, measuring 2.4 cm in size which is statistically likely a benign cyst although is not well evaluated on MRI. There is an incompletely imaged T2 hyperintense right renal lesion which is also not well characterized on this study. L1-L2: There is no disc bulge. The facet joints and ligamentum flavum are unremarkable. There is no foraminal narrowing. There is no spinal canal stenosis. L2-L3: There is diffuse disc bulge which is somewhat asymmetric to the left. The facet joints and ligamentum flavum are unremarkable. There is mild left foraminal narrowing. There is no spinal canal stenosis. L3-L4: There is diffuse disc bulge with a superimposed right lateral recess disc extrusion extending slightly below the superior endplate of L4 by approximately 4 mm. There is contact of the descending right-sided nerve roots and severe narrowing of the right lateral recess. The facet joints and ligamentum flavum are unremarkable. There is moderate left and severe right foraminal narrowing. There is no spinal canal stenosis. L4-L5: There is diffuse disc bulge. There are mild to moderate facet degenerative changes with trace facet joint effusions, bilaterally. There is moderate bilateral foraminal narrowing. There is no spinal canal stenosis. L5-S1: There is diffuse disc bulge. The facet joints and ligamentum flavum are unremarkable. There is moderate right and severe left foraminal narrowing. There is no spinal canal stenosis. IMPRESSION: Multilevel disc and facet degenerative changes of the lumbar spine as described in detail level by level above. Dictated by: Dictated on workstation # [id number]
== END ==
LOC: RAD 14:44
PROVIDERS: ATTEND Physician Assistant
DX: M48.07 Spinal stenosis, lumbosacral region (principal); M51.27 Other intervertebral disc displacement, lumbosacral region; M51.37 Other intervertebral disc degeneration, lumbosacral region; M47.816 Spondylosis without myelopathy or radiculopathy, lumbar region
CPT/HCPCS: 72148

== ENCOUNTER → 2022-08-09 | Outpatient (CLI) | payer MEDICARE ==
[~2022-08-09] MED LIST changes: -LISI-552 PO; +LISI20TA26 PO
--- NOTE | 2022-08-09 11:33 | Diagnostic Imaging Report ---
INDICATION: Hypertension and chronic kidney disease. Grayscale, color flow and duplex Doppler evaluation of both kidneys was performed. Limited Doppler evaluation of the renal arteries was performed to evaluate for renal artery stenosis. Right kidney measures 9.1 x 4.4 x 4.6 cm and the left kidney measures 8.8 x 4.3 x 5.2 cm. The kidneys have a thin overlying cortex and appear to be somewhat echogenic suggestive of medical renal disease. No calculi are seen. There is no hydronephrosis. There are bilateral renal cysts, largest on the right measuring 2.7 cm and largest on the left measuring 2.5 cm. Renal Doppler evaluation does show fairly normal velocities in the right renal artery proximally and distally. The mid renal artery was not well visualized. The renal artery to aorta ratio on the right are normal. There is significant velocity in the proximal left renal artery reaching 405 cm/s with a renal artery aorta ratio of 6.35. Mid renal artery velocities 282 cm/s with ratio 4.4. Findings are suspicious for renal artery stenosis. IMPRESSION: 1. Findings suggestive of medical renal disease with bilateral renal cysts. No calculi or hydronephrosis is detected. 2. Elevated velocities in the left main renal artery, suspicious for renal artery stenosis. Dictated by: Dictated on workstation # [id number]
== END ==
LOC: RAD 08:23
PROVIDERS: ATTEND Internal Medicine Nephrology
DX: N28.1 Cyst of kidney, acquired (principal); I12.9 Hypertensive chronic kidney disease with stage 1 through stage 4 chronic kidney disease, or unspecified chronic kidney disease; N18.32 Chronic kidney disease, stage 3b; E83.9 Disorder of mineral metabolism, unspecified
CPT/HCPCS: 76770; 93975